=== PATIENT | female | born 1995 | race Caucasian/White ===

== ENCOUNTER 2016-07-14 00:30 | Emergency (ER) | payer OTHER ==
[2016-07-14] MEDS ORDERED: Triamcinolone 40 MG/ML VIAL ONE (01:52)
--- NOTE | 2016-07-14 02:23 | PICIS ---
[facility] EMERGENCY RECORD TRIAGE (TueJul 14, 2016 00:42 MVIL) TRIAGE NOTES: C/O DIFFICULTY BREATHING STARTING SINCE EARLY THIS MORNING. ALSO C/O PRODUCTIVE COUGH AND CONGESTION. (TueJul 14, 2016 00:42 MVIL) PATIENT: NAME: Elena Lerma, AGE: 20, GENDER: female, : Tue1995, TIME OF GREET: TueJul 14, 2016 00:31, PREFERRED LANGUAGE: Slovenian, ETHNICITY: Not or , ECODE BILLING MAP: [facility], SSN: [id number], Zip Code: [address], KG WEIGHT: 104.33, HEIGHT/LENGTH: 180.34cm, BMI: 32.08, , , PERSON ID: [id number], PAYMENT: [place] [employer], PCP: NONE. (TueJul 14, 2016 00:42 MVIL) PHONE: . (00:56) COMPLAINT: DIFFICULTY BREATHING. (TueJul 14, 2016 00:42 MVIL) ADMISSION: URGENCY: 3 Urgent, ADMISSION SOURCE: Home, TRANSPORT: CAR, BED: ER -04. (TueJul 14, 2016 00:42 MVIL) ASSESSMENT: Assessment: C/O COUGH, CONGESTION, AND FEVER STARTING TODAY, WITH DYSPNEA. PATIENT HAS H/O ASTHMA., Symptoms began 07/13/2016 00:46, Symptoms began yesterday. (00:48 MVIL) PAIN: No complaint of pain, Pain is intermittent, No aggravating factors, No relieving factors. (00:48 MVIL) IMMUNIZATIONS: Flu vaccine not up to date, Tetanus not up to date, Pneumococcal vaccine not up to date. (00:48 MVIL) TRIAGE SCREENING: Patient denies suicidal ideation, Patient denies presence of domestic violence. (00:48 MVIL) PROVIDERS: TRIAGE NURSE: Edna Guillaume RN. (TueJul 14, 2016 00:42 MVIL) VITAL SIGNS: BP 119/77, Pulse 120, Resp 22, Temp 98.5, (Oral), Pain 0, O2 Sat 95, on Room Air, Time 07/14/2016 00:38. (00:38 MVIL) PREVIOUS VISIT ALLERGIES: No Known Allergies. (TueJul 14, 2016 00:42 MVIL) No Known Allergies. (00:48 MVIL) KNOWN ALLERGIES No Known Allergies CURRENT MEDICATIONS No recorded medications VITAL SIGNS VITAL SIGNS: BP: 119/77, Pulse: 120, Resp: 22, Temp: 98.5 (Oral), Pain: 0, O2 sat: 95 on Room Air, Time: 07/14/2016 00:38. (00:38 MVIL) BP: 113/81, Pulse: 113, Resp: 20, O2 sat: 99 on Room Air, Time: 07/14/2016 01:11. (01:11 MVIL) NURSING PROCEDURE: DISCHARGE NOTE (02:01 MVIL) DISCHARGE: Patient discharged to home, ambulating without assistance, driving self, accompanied by other family member, Summary of Care printed/ provided, Patient requested and was provided an electronic copy of Discharge Instructions, Transition record given to &a-1R&a+25V*p+0X*d6706T*c202B*c15G*c2P*p-0X&a-25V&a+1R Name: Elena Lerma : 1995 F20 MedRec: [id number] AcctNum: [id number] Prepared: TueJul 14, 2016 09:10 by Interface Page 1 of 7 pMD [facility] EMERGENCY RECORD patient, Discharge instructions given to patient, Prescriptions given and instructions on side effects given, Medication reconciliation form given, Above person(s) verbalized understanding of discharge instructions and follow-up care. BELONGINGS: Belongings and valuables with patient at time of discharge include:. ORDER DETAILS Order Name: ERRT * Smal Vol Neb Initial Trmt, Status: Active, Time: 00:46 07/14/2016, User: LITA, - Ordered for: MD Blum Darren, - Entered by: MD Blum Darren - TueJul 14, 2016 00:46, - Quantity: 1, Order Name: Influenza A&B Ag Screen, Status: Active, Time: 00:45 07/14/2016, User: LITA, - Ordered for: MD Blum Darren, - Entered by: MD Blum Darren - TueJul 14, 2016 00:45, - Quantity: 1. MEDICATION ADMINISTRATION SUMMARY Drug Name: Kenalog injection, Dose Ordered: 60 mg, Route: Intramuscular, Status: Given, Time: 01:59 07/14/2016, Drug Name: DuoNeb, Dose Ordered: 3 mL, Route: Nebulize, Status: Given, Time: 00:53 07/14/2016, Detailed record available in Medication Service section. MEDICATION SERVICE DuoNeb: Order: DuoNeb (ipratropium bromide/albuterol sulfate) - Dose: 3 mL : Nebulize Schedule: Now Ordered by: Stephen Blum MD Entered by: Stephen Blum MD TueJul 14, 2016 00:45 Documented as given by: Edna Guillaume RN TueJul 14, 2016 00:53 Patient, Medication, Dose, Route and Time verified prior to administration. Amount given: 3MLS, Correct patient, time, route, dose and medication confirmed prior to administration, Patient advised of actions and side-effects prior to administration, Allergies confirmed and medications reviewed prior to administration, Patient in position of comfort, Side rails up, Cart in lowest position, Family at bedside. Kenalog injection: Order: Kenalog injection (triamcinolone acetonide) - Dose: 60 mg : Intramuscular Schedule: Now Ordered by: Stephen Blum MD Entered by: Stephen Blum MD TueJul 14, 2016 01:48 Documented as given by: Edna Guillaume RN TueJul 14, 2016 &a-1R&a+25V*p+0X*u9476L*c202B*c15G*c2P*p-0X&a-25V&a+1R Name: Elena Lerma : 1995 F20 MedRec: [id number] AcctNum: [id number] Prepared: TueJul 14, 2016 09:10 by Interface Page 2 of 7 pMD [facility] EMERGENCY RECORD 01:59 Patient, Medication, Dose, Route and Time verified prior to administration. IM medication, Amount given: 60MG, Correct patient, time, route, dose and medication confirmed prior to administration, Patient advised of actions and side-effects prior to administration, Allergies confirmed and medications reviewed prior to administration, Patient in position of comfort, Side rails up, Cart in lowest position, Family at bedside. HPI FLU-LIKE SYNDROME (00:46 DHAM) CHIEF COMPLAINT: Patient presents for evaluation of body aches, Patient presents for evaluation of fever, Patient presents for evaluation of upper respiratory infection, Patient presents for evaluation of shortness of breath all day today. HISTORIAN: History provided by patient. LOCATION: Symptoms are generalized. QUALITY: Pain is dull in nature, described as aching. SEVERITY: Maximum severity of symptoms mild, Currently symptoms are mild. TIME COURSE: Sudden onset of symptoms, 15, hours prior to arrival, Symptoms are worsening, worse shortness of breath and cough throughout the day. no response to albuterol neb x 2 or 7-8 times using her inhaler of albuterol. ASSOCIATED WITH: No associated abdominal pain, No associated chest pain, Associated with cough, non-productive, No associated diarrhea, Associated with headache, No associated vomiting, No associated neck pain, No associated rash, Associated with shortness of breath, No associated urinary tract infection signs or symptoms, grandfather is ill at home with uri symptoms as well. EXACERBATED BY: Patient's condition exacerbated by nothing. RELIEVED BY: Patient's condition relieved by prescription medications, "not any better" with albuterol via neb or HFA. ROS (00:46 DHAM) CONSTITUTIONAL: Historian reports chills, reports fatigue, reports fever. EYES: Negative eye review of systems. ENT: Historian reports rhinorrhea. CARDIOVASCULAR: Negative cardiovascular review of systems. RESPIRATORY: Historian reports cough. GI: Negative gastrointestinal review of systems. GENITOURINARY FEMALE: Negative genitourinary review of systems. MUSCULOSKELETAL: Historian reports arthralgias, reports myalgias. SKIN: Negative skin review of systems. NEUROLOGIC: Historian reports headache. ENDOCRINE: Negative endocrine review of systems. PSYCHIATRIC: Negative psychiatric review of systems. &a-1R&a+25V*p+0X*f1713S*c202B*c15G*c2P*p-0X&a-25V&a+1R Name: Elena Lerma : 1995 F20 MedRec: [id number] AcctNum: [id number] Prepared: TueJul 14, 2016 09:10 by Interface Page 3 of 7 pMD [facility] EMERGENCY RECORD PAST MEDICAL HISTORY MEDICAL HISTORY: Notes: recently finished outpt ab for pneumonia, Past medical history includes pulmonary disease, asthma, pneumonia. REVIEWED 07/14/16. (00:48 MVIL) FEMALE SURGICAL HISTORY: Patient has no surgical history. (00:48 MVIL) PSYCHIATRIC HISTORY: Notes: NO PREVIOUS PSYCH HX. (00:48 MVIL) SOCIAL HISTORY: Patient drinks socially, Patient denies drug use, Patient currently uses tobacco, smokes cigarettes, daily, Patient smokes 1 pack per day. (00:48 MVIL) FAMILY HISTORY: No known family hisotry, Unknown family histroy. (00:48 MVIL) NOTES: I have reviewed the nursing documentation regarding PMHX, social hx, family hx, and surgical history as well as vitals and triage notes and agree. (00:46 DHAM) PHYSICAL EXAM (00:46 DHAM) CONSTITUTIONAL: Vital signs reviewed, Patient afebrile, Pulse, tachycardic, Blood pressure normal, Respiratory rate normal, Patient appears non toxic, Patient appears pain free, Patient alert and oriented to person, place and time, occas deep wet cough. HEAD: Head exam normal, Head exam included findings of head atraumatic, normocephalic. EYES: Eye exam normal, Eye exam included findings of eyelids normal to inspection, Pupils equally round and reactive to light, Extraocular muscles intact, Conjunctiva normal, Sclera normal, Fundoscopic exam normal. ENT: ENT exam normal, Ear exam normal, Nose exam included findings of, congestion and rhinorrhea, Pharynx exam normal, Uvula exam normal, Tonsil exam normal, Mouth exam normal, teeth normal. NECK: Neck exam normal, Neck exam included findings of normal range of motion, Trachea midline, no meningeal signs. RESPIRATORY CHEST: Respiratory exam included findings of no respiratory distress, Breath sounds not clear, Wheezing present, diffusely, No rales, No rhonchi, Breath sounds diminished, Breath sounds otherwise clear, Chest exam included findings of chest movement symmetrical, no tenderness, very mild diffuse wheezing to forced expiration airflow is decreased diffusely. CARDIOVASCULAR: Cardiovascular assessment normal, Cardiovascular exam included findings of heart rate regular rate and rhythm, Heart sounds normal. BACK: Back exam normal. UPPER EXTREMITY: Upper extremity exam normal. LOWER EXTREMITY: Lower extremity exam normal. NEURO: Neuro exam normal, [place] coma scale 15, Neuro exam &a-1R&a+25V*p+0X*v0439N*c202B*c15G*c2P*p-0X&a-25V&a+1R Name: Elena Lerma : 1995 F20 MedRec: [id number] AcctNum: [id number] Prepared: TueJul 14, 2016 09:10 by Interface Page 4 of 7 pMD [facility] EMERGENCY RECORD findings include patient oriented to person, place and time, Speech normal, Gait normal, Memory normal, Cranial nerves intact. SKIN: Skin exam normal, Skin exam included findings of skin warm, dry, and normal in color, no rash. LYMPHATIC: Lymphatic exam normal. PSYCHIATRIC: Psychiatric exam normal, Psychiatric exam included findings of patient oriented to person place and time, Normal affect, Judgment normal, Insight normal, Remote memory normal, Recent memory normal, Concentration normal. EVENTS TRANSFER: Triage to Emergency Emergency Room -04. (TueJul 14, 2016 00:42 MVIL) Removed from Emergency Emergency Room -04. (02:02 MVIL) O2SAT INTERPRETATION (00:46 DHAM) O2SAT: Single pulse oximetry, Oxygen saturation 95%, on room air, Oxygen saturation interpretation: Normal, No intervention required. DOCTOR NOTES (01:27 DHAM) TEXT: Pt laughing and playing on her phone and speaking in full sentences. Her breath sounds are improved but she says that she is not feeling much better. her rr is 18-20 on my exam and she is not using accessory muscles to breath. PROBLEM LIST No recorded problems DIAGNOSIS (01:49 DHAM) FINAL: PRIMARY: upper respiratory infection, ADDITIONAL: ACUTE BRONCHOSPASM. DISPOSITION PATIENT: Disposition Type: Discharge, Disposition: *Discharge Home. (01:49 DHAM) Patient left the department. (02:02 MVIL) INSTRUCTION (01:49 DHAM) DISCHARGE: UPPER RESP INFECTION NO ANTIBIOTIC TREATMENT ADULT. SPECIAL: Afrin nasal spray at bedtime will decrease nasal secretions and cough. Use your albuterol via nebulizer or HFA at least 4 times a day for the next week. Use your Symbicort as directed every day for the next week. STOP SMOKING!! Tylenol every 4-6 hours as needed for aches, sore throat or fever Oral rehydration with small volumes of gatorade or powerade frequently. [place] diet with no milk or caffeine. Return for signs of dehydration that we discussed. &a-1R&a+25V*p+0X*t2975Z*c202B*c15G*c2P*p-0X&a-25V&a+1R Name: Elena Lerma : 1995 F20 MedRec: [id number] AcctNum: [id number] Prepared: TueJul 14, 2016 09:10 by Interface Page 5 of 7 pMD [facility] EMERGENCY RECORD Return for fevers >2 days, worsening shortness of breath or any other concerns. PRESCRIPTION albuterol: AEROSOL (GM) : 90 mcg : INHALATION : Quantity: 2 Unit: puff(s) Route: INHALATION Schedule: every 6 hours PRN Dispense: 1 Unit: ea May substitute. Refills: No Refills . (01:50 DHAM) NOTES: No refills. (01:50 DHAM) Symbicort: HFA AEROSOL WITH ADAPTER (GRAM) : 160 mcg-4.5 mcg/actuation : INHALATION : Quantity: 2 Unit: puff(s) Route: INHALATION Schedule: 2 times a day (before meals) Dispense: 1 Unit: ea May substitute. Refills: No Refills . (01:52 DHAM) NOTES: No refills. (01:52 DHAM) IMAGING (02:00 MVIL) *DISCHARGE INSTRUCTIONS RECEIPT: Image captured from scanner. *SUPPLY CHARGE SHEET: Image captured from scanner. ADMIN (08:57 DHAM) DIGITAL SIGNATURE: MD Blum Darren. RESULTS (01:43 DHAM) MICROBIOLOGY: Influenza A&B Ag Screen: [id number] Collection DT: TueJul 14, 2016 01:20, See comment below , @ ER ROOM#: ER-04 Source: Nasal swab Spec Desc: , Influenza A Antigen: NEGATIVE for the , presence of , INFLUENZA A Antigen , Influenza B Antigen: NEGATIVE for the , presence of , INFLUENZA B Antigen , The rapid Flu A&B test can distinguish between influenza A , Influenza A&B Ag Screen See comment below , and B viruses, but it does not differentiate influenza , Influenza A&B Ag Screen See comment below , subtypes. , Influenza A&B Ag Screen See comment below , Influenza A&B Ag Screen See comment below , Influenza A&B Ag Screen See comment below , Influenza A&B Ag Screen See comment below , characteristics of this device with human specimens infected , Influenza A&B Ag Screen See comment below , with the 2008 H1N1 influenza virus have not been , Influenza A&B Ag Screen See comment below , established. For example: this test cannot distinguish , Influenza A&B Ag Screen See comment below , influenza infections caused by novel H1N1 influenza A , &a-1R&a+25V*p+0X*f5886L*c202B*c15G*c2P*p-0X&a-25V&a+1R Name: Elena Lerma : 1995 F20 MedRec: [id number] AcctNum: [id number] Prepared: TueJul 14, 2016 09:10 by Interface Page 6 of 7 pMD [facility] EMERGENCY RECORD Influenza A&B Ag Screen See comment below , viruses versus seasonal influenza A viruses. , Influenza A&B Ag Screen See comment below , , Influenza A&B Ag Screen See comment below , A negative result does not exclude influenza virus , Influenza A&B Ag Screen See comment below , infection; therefore, if more conclusive testing is desired, , Influenza A&B Ag Screen See comment below , follow up confirmatory testing is warranted., Influenza A&B Ag Screen See comment below . Castro: LITA=MD Viktoria, Stephen OCASIO=TIM Guillaume, Edna &a-1R&a+25V*p+0X*p5890G*c202B*c15G*c2P*p-0X&a-25V&a+1R Name: Elena Lerma : 1995 F20 MedRec: [id number] AcctNum: [id number] Prepared: TueJul 14, 2016 09:10 by Interface Page 7 of 7 pMD MTDD
== END 2016-07-14 01:55 | disposition home or self-care (01) ==
LOC: BURERS 00:30
DX: J98.01 Acute bronchospasm (principal); J06.9 Acute upper respiratory infection, unspecified; F17.210 Nicotine dependence, cigarettes, uncomplicated
CPT/HCPCS: 94640; 96372; J3301; J7620

== ENCOUNTER 2017-07-12 04:52 | Emergency (ER) | payer OTHER, SELFPAY ==
[2017-07-12] MEDS ORDERED: diphenhydrAMINE 50 MG/ML VIAL ONE (05:43)
[2017-07-12] MEDS ORDERED: Metoclopramide HCl 10 MG/2 ML VIAL ONE (05:43)
[2017-07-12 05:47] LABS: BHCG - Serum Negative (NEGATIVE); Pregs Control Background? CLEAR/WHITE (CLR/WHITE); Pregs Control Bar Appear? YES (CONTROL BAR)
== END 2017-07-12 06:45 | disposition home or self-care (01) ==
LOC: BURERS 04:52
DX: G43.909 Migraine, unspecified, not intractable, without status migrainosus (principal); J45.909 Unspecified asthma, uncomplicated; F17.210 Nicotine dependence, cigarettes, uncomplicated
CPT/HCPCS: 84703; 96365; 96375; J1200; J2765

== ENCOUNTER 2017-11-05 23:27 | Emergency (ER) | payer SELFPAY | END 2017-11-05 23:45 | disposition home or self-care (01) | LOC: BURERS 23:27 | DX: T16.1XXA Foreign body in right ear, initial encounter (principal); J45.909 Unspecified asthma, uncomplicated; F17.210 Nicotine dependence, cigarettes, uncomplicated; Z79.899 Other long term (current) drug therapy | CPT/HCPCS: 69200 ==

== ENCOUNTER 2018-01-11 17:45 | Emergency (ER) | payer SELFPAY ==
[2018-01-11 18:19] LABS: #Lymphocytes 1.2 thou/uL (1.20-3.40); #Monocytes 0.5 thou/uL (0.11-0.59); #Neutrophils 4.3 thou/uL (1.40-6.50); %Basophils 0.7 % (0.0-1.0); %Eosinophils 0.5 % (0.0-10.0); %Lymphocytes 19.5 % (21.0-51.0); %Neutrophils 71.4 % (42.0-75.0); Hemoglobin 15.4 g/dL (12.0-16.0); Mean Corpuscular HGB CONC 34.7 g/dL (32.0-36.0); Mean Corpuscular Hemoglobin 26.4 pg (27.0-31.0); Mean Platelet Volume 7.2 fL (7.4-10.4); Platelet Count 148 thou/uL (130-400); RBC Distribution Width 11.4 % (11.5-14.5); Red Blood Cell (RBC) Count 5.83 mill/uL (4.20-5.40)
[2018-01-11 18:34] LABS: BHCG - Serum Negative (NEGATIVE); Pregs Control Background? CLEAR/WHITE (CLR/WHITE); Pregs Control Bar Appear? YES (CONTROL BAR)
[2018-01-11 18:41] LABS: ALT (SGPT) 24 U/L (8-55); AST (SGOT) 19 U/L (5-34); Albumin 4.3 g/dL (3.5-5.0); Alkaline Phosphatase 60 U/L (40-150); Anion Gap 15 mmol/L (10-20); BUN (Urea Nitrogen) 12 mg/dL (7.0-18.7); Bilirubin, Total 0.9 mg/dL (0.2-1.2); Calc. Creatinine Clearance 0 mL/min (70-130); Calcium 9.9 mg/dL (7.8-10.44); Carbon Dioxide 22 mmol/L (22-29); Chloride 102 mmol/L (98-107); Estimated GFR-MDRD 66; Globulin 3.9 g/dL (2.4-3.5); Glucose 110 mg/dL (70-105); Potassium 3.5 mmol/L (3.5-5.1); Protein, Total 8.2 g/dL (6.0-8.3); Sodium 135 mmol/L (136-145)
[2018-01-11] MEDS ORDERED: Ketorolac Tromethamine 30 MG/ML VIAL ONE (19:00)
[2018-01-11 20:52] LABS: Pregu Control Background? CLEAR/WHITE (CLR/WHITE); Pregu Control Bar Appear? YES (CONTROL BAR); Specific Gravity 1.015 (1.002-1.036)
[2018-01-11 20:54] LABS: Clarity Cloudy (Clear); Pregnancy Test - Urine (BHCG) Negative (Negative); Specific Gravity, Urine 1.015 (1.005-1.030)
[2018-01-11 20:55] LABS: Bilirubin Small (Negative); Blood, Urine Moderate (Negative); Glucose, Urine (Dipstick) Negative (Negative); Leukocyte Moderate (Negative); Nitrite Positive (Negative); Protein, Urine (Dipstick) > or equal to 300 mg/dL (Neg-Trace)
[2018-01-11 20:57] LABS: Bacteria/HPF 4+ HPF (None Seen); Crystals/HPF None Seen HPF (Negative); Hyaline Casts/LPF NONE SEEN LPF (0-3 Hyaline); Other Casts/LPF None Seen LPF (0-3 Hyaline); Oval Fat Bodies/HPF None Seen HPF (None Seen); Renal Epithelial None Seen HPF (0-3); Sperm/HPF None Seen HPF (None Seen); Transitional Epithelial NONE SEEN HPF (0-3); Trichomonas/HPF None Seen HPF (None Seen); Yeast-All Forms None Seen HPF (None Seen)
[2018-01-11] MEDS ORDERED: cefTRIAXone\\ROCEPHIN 1 GM VIAL ONE (21:09)
--- NOTE | 2018-01-11 23:01 | RAD ---
CHEST TWO VIEWS 01/11/18 Comparison is made with an 05/29/16 study. There is probably an area of scarring in the lingula. It does not appear substantially different than before. The lungs are otherwise clear with no lobar infiltrate or effusion seen. Heart is normal in size. The trachea is midline. IMPRESSION: No acute thoracic finding. POS: HOME
== END 2018-01-11 21:30 | disposition home or self-care (01) ==
LOC: BURERS 17:45
DX: N39.0 Urinary tract infection, site not specified (principal); J45.909 Unspecified asthma, uncomplicated; F17.210 Nicotine dependence, cigarettes, uncomplicated
CPT/HCPCS: 71046; 80053; 81003; 81015; 81025; 83605; 84703; 85025; 87077; 87086; 87186; 87804; 96361; 96372; 96374; J0696; J1885

== ENCOUNTER 2018-03-12 18:02 | Emergency (ER) | payer SELFPAY ==
[2018-03-12] MEDS ORDERED: Albuterol Sulfate 2.5 mg/3 ml Neb ONE (18:11)
[2018-03-12] MEDS ORDERED: methylPREDNISolone Sod Succ/PF 125 MG/2 ML VIAL ONE (18:12)
[2018-03-12] MEDS ORDERED: predniSONE 20 MG TAB ONE (18:13)
== END 2018-03-12 18:27 | disposition home or self-care (01) ==
LOC: BURERS 18:02
DX: J45.901 Unspecified asthma with (acute) exacerbation (principal); F17.210 Nicotine dependence, cigarettes, uncomplicated
CPT/HCPCS: J2930; J7506; J7611; J7620

== ENCOUNTER 2018-08-03 13:27 | Emergency (ER) | payer OTHER, SELFPAY | END 2018-08-03 14:44 | disposition home or self-care (01) | LOC: BURERS 13:27 | DX: O99.512 Diseases of the respiratory system complicating pregnancy, second trimester (principal); J06.9 Acute upper respiratory infection, unspecified; J45.909 Unspecified asthma, uncomplicated; O99.332 Smoking (tobacco) complicating pregnancy, second trimester; F17.210 Nicotine dependence, cigarettes, uncomplicated; Z3A.26 26 weeks gestation of pregnancy | CPT/HCPCS: 99283 ==

== ENCOUNTER 2018-09-07 11:34 | Emergency (ER) | payer OTHER | END 2018-09-07 12:01 | disposition home or self-care (01) | LOC: BURERS 11:34 | DX: O99.513 Diseases of the respiratory system complicating pregnancy, third trimester (principal); J20.9 Acute bronchitis, unspecified; O99.333 Smoking (tobacco) complicating pregnancy, third trimester; F17.210 Nicotine dependence, cigarettes, uncomplicated; Z79.51 Long term (current) use of inhaled steroids; Z3A.28 28 weeks gestation of pregnancy | CPT/HCPCS: 99283 ==

== ENCOUNTER 2018-10-25 03:18 | Emergency (ER) | payer OTHER ==
[2018-10-25] MEDS ORDERED: Oseltamivir 75 MG CAP ONE (04:07)
[2018-10-25 04:23] LABS: ALT (SGPT) 26 U/L (8-55); AST (SGOT) 22 U/L (5-34); Albumin 3.3 g/dL (3.5-5.0); Alkaline Phosphatase 95 U/L (40-150); Anion Gap 14 mmol/L (10-20); BUN (Urea Nitrogen) 5 mg/dL (7.0-18.7); Bilirubin, Total 0.7 mg/dL (0.2-1.2); Calc. Creatinine Clearance 0 mL/min (70-130); Calcium 9.2 mg/dL (7.8-10.44); Carbon Dioxide 19 mmol/L (22-29); Chloride 107 mmol/L (98-107); Estimated GFR-MDRD Greater than 90; Globulin 3.2 g/dL (2.4-3.5); Glucose 86 mg/dL (70-105); Potassium 3.7 mmol/L (3.5-5.1); Protein, Total 6.5 g/dL (6.0-8.3); Sodium 136 mmol/L (136-145)
[2018-10-25 04:24] LABS: #Basophils 0.1 thou/uL (0.0-0.2); #Eosinphils 0.1 thou/uL (0.0-0.7); #Lymphocytes 0.5 thou/uL (1.20-3.40); #Monocytes 0.4 thou/uL (0.11-0.59); #Neutrophils 4.6 thou/uL (1.40-6.50); %Eosinophils 1.4 % (0.0-10.0); %Lymphocytes 8.7 % (21.0-51.0); %Monocytes 6.6 % (0.0-10.0); %Neutrophils 82.3 % (42.0-75.0); Band 8 % (5-11); Eosinophils 1 % (0-10); Hemoglobin 12.7 g/dL (12.0-16.0); Lymphocytes 11 % (21-51); MDiff Complete? YES; Mean Corpuscular HGB CONC 33.1 g/dL (32.0-36.0); Mean Corpuscular Hemoglobin 29.4 pg (27.0-31.0); Mean Corpuscular Volume 88.7 fL (78.0-98.0); Mean Platelet Volume 9.8 fL (7.4-10.4); Monocytes 6 % (0-10); Neutrophil 73 % (42-75); Platelet Count 111 thou/uL (130-400); Platelet Morphology Comment Appears Decreased; RBC Distribution Width 12.9 % (11.5-14.5); RBC Morphology Normal; Red Blood Cell (RBC) Count 4.32 mill/uL (4.20-5.40); White Blood Cell (WBC) Count 5.6 thou/uL (4.8-10.8)
[2018-10-25 04:29] LABS: Clarity Slightly Cloudy (Clear); Glucose, Urine (Dipstick) Negative (Negative); Leukocyte Large (Negative); Nitrite Negative (Negative); Protein, Urine (Dipstick) 30 mg/dL (Neg-Trace)
[2018-10-25 04:30] LABS: Bilirubin Small (Negative); Blood, Urine Negative (Negative)
[2018-10-25 04:54] LABS: Bacteria/HPF 2+ HPF (None Seen); RBC/HPF 0-3 HPF (0-3); Squamous Epithelial 0-3 HPF (0-3)
[2018-10-25 04:55] LABS: Crystals/HPF 1+ AMORPH PHOS HPF (Negative)
[2018-10-25] MEDS ORDERED: Cephalexin 500 MG CAP ONE (05:05)
== END 2018-10-25 05:07 | disposition home or self-care (01) ==
LOC: BURERS 03:18
DX: O99.513 Diseases of the respiratory system complicating pregnancy, third trimester (principal); J11.1 Influenza due to unidentified influenza virus with other respiratory manifestations; O23.43 Unspecified infection of urinary tract in pregnancy, third trimester; J45.909 Unspecified asthma, uncomplicated; O99.333 Smoking (tobacco) complicating pregnancy, third trimester; F17.210 Nicotine dependence, cigarettes, uncomplicated; Z79.51 Long term (current) use of inhaled steroids; Z3A.36 36 weeks gestation of pregnancy
CPT/HCPCS: 80053; 81003; 81015; 85025; 87086; 94760; 96360

== ENCOUNTER 2018-10-29 23:40 | Emergency (ER) | payer OTHER | END 2018-10-30 00:05 | disposition home or self-care (01) | LOC: BURERS 23:40 | DX: J06.9 Acute upper respiratory infection, unspecified (principal); J45.909 Unspecified asthma, uncomplicated; F17.210 Nicotine dependence, cigarettes, uncomplicated; Z79.51 Long term (current) use of inhaled steroids | CPT/HCPCS: 99283 ==

== ENCOUNTER 2020-05-13 14:36 | Emergency (ER) | payer OTHER, SELFPAY ==
--- NOTE | 2020-05-13 17:26 | RAD ---
LEFT FOOT THREE VIEWS: 05/13/20 No fracture or periosteal reaction was seen. The joints are normal in appearance. IMPRESSION: No acute findings. POS: HOME
--- NOTE | 2020-05-13 17:56 | RAD ---
LEFT ANKLE THREE VIEWS: 05/13/20 There is some mild swelling around the ankle but no fracture was seen. The articular surfaces are smo oth. The joint appears normal. IMPRESSION: Minor soft tissue swelling. POS: HOME
== END 2020-05-13 17:05 | disposition home or self-care (01) ==
LOC: BURERS 14:36
DX: S93.602A Unspecified sprain of left foot, initial encounter (principal); J45.909 Unspecified asthma, uncomplicated; F17.210 Nicotine dependence, cigarettes, uncomplicated; W10.9XXA Fall (on) (from) unspecified stairs and steps, initial encounter

== ENCOUNTER 2022-07-20 18:09 | Emergency (ER) | payer SELFPAY ==
[2022-07-20] MEDS ORDERED: Acetaminophen 500 MG TAB ONE (18:36)
[2022-07-20 18:49] LABS: #Lymphocytes 0.3 thou/uL (1.20-3.40); #Monocytes 0.2 thou/uL (0.11-0.59); #Neutrophils 2.8 thou/uL (1.40-6.50); %Basophils 0.9 % (0.0-1.0); %Eosinophils 1.1 % (0.0-10.0); %Lymphocytes 8.3 % (21.0-51.0); %Monocytes 5.9 % (0.0-10.0); %Neutrophils 83.8 % (42.0-75.0); Hemoglobin 12.5 g/dL (12.0-16.0); Mean Corpuscular HGB CONC 33.6 g/dL (32.0-36.0); Mean Corpuscular Hemoglobin 28.8 pg (27.0-31.0); Mean Corpuscular Volume 85.7 fl (78.0-98.0); Mean Platelet Volume 8.4 fL (7.4-10.4); Platelet Count 120 10x3/uL (130-400); RBC Distribution Width 11.2 % (11.5-14.5); Red Blood Cell (RBC) Count 4.35 mill/uL (4.20-5.40); White Blood Cell (WBC) Count 3.3 10x3/uL (4.8-10.8)
[2022-07-20 19:05] LABS: ALT (SGPT) 20 U/L (8-55); AST (SGOT) 12 U/L (5-34); Albumin 3.7 g/dL (3.5-5.0); Alkaline Phosphatase 38 U/L (40-110); Anion Gap 11 mmol/L (10-20); BUN (Urea Nitrogen) 8 mg/dL (7.0-18.7); Bilirubin, Total 0.5 mg/dL (0.2-1.2); Calc. Creatinine Clearance 0 mL/min (70-130); Carbon Dioxide 25 mmol/L (22-29); Chloride 100 mmol/L (98-107); Estimated GFR 114; Globulin 3.2 g/dL (2.4-3.5); Glucose 90 mg/dL (70-105); Lipase 8 U/L (8-78); Potassium 3.8 mmol/L (3.5-5.1); Protein, Total 6.9 g/dL (6.0-8.3); Sodium 132 mmol/L (136-145)
[2022-07-20 19:33] LABS: Bilirubin Negative (Negative); Blood, Urine Negative (Negative); Clarity Cloudy (Clear); Glucose, Urine (Dipstick) Negative (Negative); Ketone, Urine Negative (Negative); Leukocyte Moderate (Negative); Nitrite Negative (Negative); Protein, Urine (Dipstick) Trace mg/dL (Neg-Trace); pH, Urine 7.5 (5.0-9.0)
[2022-07-20 19:41] LABS: Bacteria/HPF 3+ HPF (None Seen); RBC/HPF None Seen HPF (0-3)
[2022-07-20] MEDS ORDERED: Oseltamivir 75 MG CAP ONE (20:01)
[2022-07-20] MEDS ORDERED: Cephalexin 250 MG CAP ONE (20:01)
== END 2022-07-20 20:07 | disposition home or self-care (01) ==
LOC: BURERS 18:09
DX: O98.512 Other viral diseases complicating pregnancy, second trimester (principal); U07.1 COVID-19; O99.512 Diseases of the respiratory system complicating pregnancy, second trimester; J11.1 Influenza due to unidentified influenza virus with other respiratory manifestations; J45.909 Unspecified asthma, uncomplicated; O23.41 Unspecified infection of urinary tract in pregnancy, first trimester; O99.332 Smoking (tobacco) complicating pregnancy, second trimester; F17.210 Nicotine dependence, cigarettes, uncomplicated; Z3A.08 8 weeks gestation of pregnancy
CPT/HCPCS: 80053; 81003; 81015; 83605; 83690; 84702; 85025; 87086; 87804; 99283; U0003; U0005

== ENCOUNTER 2022-09-20 07:40 | Emergency (ER) | payer MEDICAID | END 2022-09-20 10:22 | disposition home or self-care (01) | LOC: BURERS 07:40 | DX: O20.9 Hemorrhage in early pregnancy, unspecified (principal); O99.332 Smoking (tobacco) complicating pregnancy, second trimester; F17.210 Nicotine dependence, cigarettes, uncomplicated; Z3A.17 17 weeks gestation of pregnancy | CPT/HCPCS: 90375; 99283 ==